=== PATIENT | male | born 1980 | race Caucasian/White ===

== ENCOUNTER → 2023-09-10 15:00 | Outpatient (CLI) | payer OTHER, SELFPAY ==
--- NOTE | ~2023-09-10 | MR_ITS ---
EXAMINATION: MR sacroiliac jpaige wo/w con DATE: 09/10/2023 15:47 INDICATION: Ankylosing spondylitis of multiple sites of the spine. Low back pain. Bilateral hip pain. TECHNIQUE: Magnetic resonance imaging (MRI) of the sacroiliac joints was performed without and with 1 5 mL MultiHance intravenous contrast. COMPARISON: None. FINDINGS: Bone alignment is normal. No fracture. There is mild lumbar spondylosis. There is ankylosis of the sa croiliac joints. There is edema and enhancement at the junction of the right erector spinae muscles a nd posterior right iliac crest. IMPRESSION: 1. Ankylosis of the sacroiliac joints. 2. Edema and enhancement at the junction of the right erector spinae muscles and posterior right adrien c crest, consistent with mild muscle strain. Reviewed, dictated and finalized at location A. IZATION REVIEW RN IMPRESSION: 1. Ankylosis of the sacroiliac joints. 2. Edema and enhancement at the junction of the right erector spinae muscles an d posterior right iliac crest, consistent with mild muscle strain.
== END ==
DX: M45.0 Ankylosing spondylitis of multiple sites in spine (principal); M12.80 Other specific arthropathies, not elsewhere classified, unspecified site; M45.6 Ankylosing spondylitis lumbar region; Z79.899 Other long term (current) drug therapy
CPT/HCPCS: 72197; A9577

== ENCOUNTER 2025-02-24 09:41 | Outpatient (CLI) | payer OTHER, SELFPAY ==
--- NOTE | ~2025-02-24 | XR_ITS ---
EXAM/ PROCEDURE: XR cervical spine 4-5V - 02/24/2025 9:46 CDT HISTORY: 44 years old Male with M54.2 - Cervicalgia M54.2 - Cervicalgia COMPARISON: None available TECHNIQUE: Four view(s) FINDINGS/ IMPRESSION: There are no fractures or dislocations.Multilevel degenerative changes are seen. Diffuse idiopathic s keletal hyperostosis seen. Visualized portion of lungs are clear. Reviewed, dictated and finalized at location A.
== END 2025-02-24 09:42 | disposition home or self-care (01) ==
PROVIDERS: PCP Internal Medicine; Visit Provider Nurse Practitioner
DX: M48.12 Ankylosing hyperostosis [Forestier], cervical region (principal); V89.2XXA Person injured in unspecified motor-vehicle accident, traffic, initial encounter
CPT/HCPCS: 72050

== ENCOUNTER 2025-08-16 01:57 | Day surgery (SDC) | payer OTHER, SELFPAY ==
[2025-07-25 14:17] VITALS: BMI 25.1
--- OUTSIDE RECORDS SUMMARY | 2025-08-16 02:00 | XMS_ITS | Encounter Summary ---
Author Organization [facility] Address [address] [place] [address] Phone Care Team Providers Care Ed Manager Name Role Phone Morris Jones MD Primary Care Provider [phone] Sandeep Lake Primary Care Provider Encounter Details Date Type Department Care Team (Late st Contact Info) Description 09/10/2023 Orders Only [facility] Scanning, Provider Social History Tobacco Use Types Packs/Day Years Used Date Smoking Tobacco: Every Day Cigarettes 0.3 23 Started: 08/25/2019 Smokeless Tobacco: Never AUDIT-C Answer Date Recorded Q1: How often do you have a drink containing alc ohol? 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 Gender Identity Not on file Sexual Orientation Not on file documented as of this encounter Plan of Treatment Not on file documented as of this encounter Procedures Procedure Name Priority Date/Time Associated Diagnosis Comments SCAN - RADIOLOGY/IMAGING 09/10/2023 documented in this encounter Results * SCAN - RADIOLOGY/IMAGING (09/10/2023) Anatomical Region Laterality Modality Other us Provider Scanning Final Result documented in this encounter Visit Diagnoses Not on filedocumented in this encounter Care Teams Ed Manager Relationship Specialty Start Date End Date Morris Jones MD [address] [place] [address] PCP - General Internal Medicine 05/21/22 06/21/24 Sandeep Lake PA [address] [place] [address] PCP - General Physician Wildlife Biology Technician 06/22/24 documented as of this encounter
--- OUTSIDE RECORDS SUMMARY | 2025-08-16 02:00 | XMS_ITS | Encounter Summary ---
Author Organization [facility] Address [address] [place] [address] Phone Care Team Providers Care Three Dimensional Art Instructor Name Role Phone David Lopez MD, Rod Mattson Primary Care Provider Morris Jones MD Primary Care Provider [phone]- [phone] Sandeep Lake Primary Care Provider Encounter Details Date Type Department Care Team (Late st Contact Info) Description 07/01/2018 Orders Only [facility]HE[facility]ATOLOGY Scanning, Provider Social History Tobacco Use Types Packs/Day Years Used Date Smoking Tobacco: Never Assessed Sex and Gender Information Value Date Recorded Sex Assigned at Not on file 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 Gender Identity Not on file Sexual Orientation Not on file documented as of this encounter Plan of Treatment Not on file documented as of this encounter Procedures Procedure Name Priority Date/Time Associated Diagnosis Comments SCAN - RADIOLOGY/IMAGING 07/01/2018 documented in this encounter Results * SCAN - RADIOLOGY/IMAGING (07/01/2018) Anatomical Region Laterality Modality Other us Provider Scanning Final Result documented in this encounter Visit Diagnoses Not on filedocumented in this encounter Care Teams Three Dimensional Art Instructor Relationship Specialty Start Date End Date Rod Hernandez Jr., MD [address] [place] [address] PCP - General Geriatric Medicine 07/09/18 05/20/22 Morris Jones MD [address] [place] [address] PCP - General Internal Medicine 05/21/22 06/21/24 Sandeep Lake PA [address] [place] [address] PCP - General Physician Dog Behaviorist 06/22/24 documented as of this encounter
--- OUTSIDE RECORDS SUMMARY | 2025-08-16 02:00 | XMS_ITS | Encounter Summary ---
Author Organization [facility] Address [address] [place] [address] Phone Care Team Providers Care Overedger Name Role Phone Sandeep Lake Primary Care Provider Encounter Details Date Type Department Care Team (Late st Contact Info) Description 02/24/2025 Orders Only [facility]HE[facility]ATOLOG[facility] Scanning, Provider Social History Tobacco Use Types Packs/Day Years Used Date Smoking Tobacco: Former Cigarettes 0.3 23.7 S tarted: 08/25/2019 Smokeless Tobacco: Never AUDIT-C Answer Date Recorded Q1: How often do you have a drink containing alcohol? 2-3 times a week 11/30/2024 Q2: How many drinks containi ng alcohol do you have on a typical day when you are drinking? 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 Gender Identity Not on file Sexual Orientation Not on file documented as of this encounter Plan of Treatment Not on file documented as of this encounter Procedures Procedure Name Priority Date/Time Associated Diagnosis Comments SCAN - RADIOLOGY/IMAGING 02/24/2025 documented in this encounter Results * SCAN - RADIOLOGY/IMAGING (02/24/2025) Anatomical Region Laterality Modality Other us Provider Scanning Final Result documented in this encounter Visit Diagnoses Not on filedocumented in this encounter Care Teams Overedger Relationship Specialty Start Date End Date Sandeep Lake PA [address] [facility] [address] [place] [address] PCP - General Physician Web Press Operator Helper Offset 06/22/24 documented as of this encounter
--- OUTSIDE RECORDS SUMMARY | 2025-08-16 02:00 | XMS_ITS | Clinical Summary ---
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 Gender Identity Not on file Sexual Orientation Not on file Plan of Treatment Health Maintenance Due Date Last Done Comments Colorectal Cancer Screening Colonoscopy (10 Years) 1980 Annual Physical 1983 Hepatitis C 1998 DTaP, Tdap and Td Vaccines ( 1 - Tdap) 1999 Hepatitis B Vaccines (1 of 3 - 19+ 3-dose series) 1999 HPV Vaccines (1 - 3-dose SCD M series) 2007 COVID-19 Vaccine (2024-2 6 season) 2025 Influenza Adult (#1) 2025 Hepatitis A Vaccines Aged Out No long er eligible based on patient's age to complete this topic Meningococcal B Vaccine Aged Out No l onger eligible based on patient's age to complete this topic Meningococcal Vaccine Aged Out No luis a alberto eligible based on patient's age to complete this topic Pneumococcal Vaccine: Pediat rics (0 to 5 Years) and At-Risk Patients (6 to 49 Years) Aged Out No longer eligible b ased on patient's age to complete this topic RSV Immunizations Under 20 Months Aged Out No longer eligible based on patient's age to complete this topic
--- OUTSIDE RECORDS SUMMARY | 2025-08-16 02:00 | XMS_ITS | Clinical Summary ---
Author Organization [facility] Address [address] [place] [address] Care Team Providers Care Mushroom Packer Name Role Phone Sandeep Lake Primary Care Provider Allergies No known active allergies Medications tofacitinib (Xeljanz XR) 11 mgIndications:An kylosing spondylitis of multiple sites in spine (HCC) Take 1 tablet (11 mg total) by mouth daily 90 tablet 3 5 Active sulfaSALAzine (AZULFIDINE) 500 mg tablet TAKE 1 TABLET BY MOUTH EVERY DAY 90 tablet 1 5 Active clobetasoL (TEMOVATE) 0.05 % ointmentIndicati ons:Eczema, unspecified type Apply thin layer BID to AA torso and extremities PRN rash. Do not apply to face or groin. 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 [facility] IM DOC from Last 3 Months Immunizations Immunization Administration Dates Next Due Influenza, Quadrivalent, Maryana l Culture-based MDCK, Preservative Free, Antibiotic Free, Intramuscular 08/11/2019 Surgical History Surgery Date Site/Laterality Comments KNEE ARTHROSCOPY Medical History Medical History Date Comments Gout Back pain Eczema Ankylosing spondylitis Family History Medical History Relation Name Comments Diabetes Father Gout Father Hypertension Father Hypertension Mother Melanoma Mother Psoriasis Mother psoriasis Mother Endometriosis Sister Graves' disease Sister Altagracia's thyroiditis Sister Ankylosing spondylitis Neg Hx Relation Name Status Comments Father Alive Mother Alive Sister Alive Social History Tobacco Use Types Packs/Day Years Used Date Smoking Tobacco: Former Cigarettes 0.3 23.7 S tarted: 08/25/2019 Smokeless Tobacco: Never Tobacco Cessation:Counseling Given: Not Answered AUDIT-C Answer Date Recorded Q1: How often [...] on file Legal Sex Male 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 WORKER Gender Identity Not on file Sexual Orientation Not on file Last Filed Vital Signs Vital Sign Reading Time Taken Comments Blood Pressure 120/79 05/03/2025 2:08 PM CDT Pulse 73 05/03/2025 2:08 PM CDT Temperature 36.4 C (97.5 F) 05/03/2025 2:08 PM CDT Respiratory Rate - - Oxygen Saturation 96% 05/03/2025 2:08 PM CDT Inhaled Oxygen Concentration - - Weight 83.8 kg (184 lb 11.2 oz) 05/03/2025 2:08 PM CDT Height 177.8 cm (5' 10) 05/03/2025 2:08 PM CDT Body Mass Index 26.5 05/03/2025 2:08 PM CDT Plan of Treatment Health Maintenance Due Date Last Done Comments Colon Cancer Screening-Colonoscopy 1980 Depression Screening 1980 DTaP/Tdap/Td Vaccine (1 - Tdap) 1991 Varicella Vaccines (1 of 2 - 13+ 2-dose series) 1993 Hepatitis B Screening 1998 Regular Well Visit/Exam 18-64 1998 HPV Vaccines (1 - 3-dose SCD M series) 2007 Influenza Vaccine (#1) 2025 08/11/2019 Hepatitis C Screening Completed 08/11/2019 Pneumococcal vaccine <65 Aged Out No longer eligible based on patient's age to complete this topic Procedures Procedure Name Priority Date/Time Associated Diagnosis Comments HEPATITIS C RNA, QUANTITATIVE, PCR Routine 08/11/2019 11:53 AM NIGHT WORKER Ankylosing spondylitis of lumbar region (HCC) from Last 3 Months or Most Recently Relevant to Health Maintenance Results * Hepatitis C (HCV) RNA PCR, quantitative (08/11/2019 11:53 AM NIGHT WORKER) HCV RNA result Not Detected GAVIN SEGUNDO Comment: Interpretive data: The quantifiable range of this assay is 15 IU/mL to 100,000,000 IU/mL (1.18 log IU/mL to 8.00 log IU/mL). Testing was performed by the [employer] AmpliPrep/SOHAM TaqMan HCV Test version 2.0 ([employer] Testing performed at [facility] Current Interpretive Data was last revised on 2015. Blood specimen (specimen) 08/11/2019 11:53 AM NIGHT WORKER 08/11/2019 2:03 PM NIGHT WORKER Yesenia Edwards MD LAB MICROBIOLOGY - GENERAL ORDERABLES Final Result [facility] Department [place] [address] from Last 3 Months or Most Recently Relevant to Health Maintenance Insurance [employer] [facility] PPO CIGNA [facility] PPO Care Teams Mushroom Packer Relationship Specialty Start Date End Date Sandeep Lake PA [address] [facility] [address] [place] [address] PCP - General Physician Key Holder 06/22/24
[2025-08-16 11:29] VITALS: BP 110/64; PULSE 62; RESP 18; TEMP 36.4; O2SAT 97
[2025-08-16] MEDS: LACTATED RINGERS 1,000 ML 150 ML IV CONT (11:36)
--- NOTE | 2025-08-16 12:30 | WPDANESEPPF ---
Anes - Initial Pre Proc Eval Procedure: Operation Date: 08/16/25 12:30 Proposed Procedures p Screening Colonoscopy - Marco Linder MD Date/Time: 08/16/25 12:30 Surgeon: Marco Linder MD Pre Op Diagnosis: Encounter for screening for malignant neoplasm of Patient Data Age: 45 Gender: M Height: 1.78 m Weight: 79 kg Last Vital Signs Temp 97.5 F L 08/16/25 11:29 Pulse 62 08/16/25 11:29 Resp 18 08/16/25 11:29 BP 110/64 08/16/25 11:29 Pulse Ox 97 08/16/25 11:29 O2 Del Method Room Air 08/16/25 11:29 Allergies Allergy/AdvReac Type Severity Reaction Status Date / Time No Known Allergies Allergy Verified 08/16/25 11:28 Home Medications ?Medication ?Instructions ?Recorded ?Confirmed ?Type sulfasalazine 500 mg 0.5 gm PO BID #1 tablet 09/03/19 07/25/25 Rx tablet,delayed release diclofenac sodium 75 mg 75 mg PO DAILY 09/11/21 07/25/25 History tablet,delayed release tofacitinib 11 mg tablet,extended 11 mg PO DAILY 03/06/22 07/25/25 History release 24 hr (Xeljanz XR) methocarbamol 750 mg tablet 750 mg PO TID #30 tabs 02/24/25 07/25/25 Rx rosuvastatin 10 mg tablet (Crestor) 10 mg PO DAILY #30 tabs 06/07/25 07/25/25 Rx Patient hx anesthesia problems: none Family hx anesthesia problems: none Results Review: All pre-operative results and documents have been reviewed as part of the pre-operative evaluation. [facility] Past Medical History Medical History BMI 26.0-26.9,adult Other spondylosis with radiculopathy, cervical region Other fatigue Mixed hyperlipidemia Malaise and fatigue Lumbar muscle pain Impaired glucose tolerance (oral) Idiopathic gout, unspecified site Hypogonadism in male Hyperuricemia Encounter for well adult exam with abnormal findings Chronic bilateral low back pain without sciatica Back muscle spasm Gout Ankylosing spondylitis of unspecified sites in spine sees Rheumatology at [facility]. Surgical History Surgical History H/O knee surgery Family History Family History Father Family history of gout Diabetes mellitus Mother No problems noted. Sibling No problems noted. Social History Social History Smoking packs per day: 0.5 Smoking cigarettes per day: 10.0 Years smoked: 21 Smoking pack-years: 10.50 Smoking status: Former smoker Tobacco type: cigarettes Second hand tobacco smoke exposure: Yes Alcohol intake: current Drinks per week: 10 Substance use: never Substance use type: does not use Lack of Transportation: No Lack of Food: Never True Current Housing: I Have Housing Concerned About Future Housing: No Difficulty Paying Gas/Electric Bills: No Difficulty Paying for Meds: No Currently Unemployed: No Education: Bachelor's Degree Difficulty w/ Childcare or Family Care: No Living arrangements: with family Occupation/Education: occupation Additional occupation/education comments: banker Gender identity (if verbalized by the patient): Male Spiritual care concerns: No Anes - Eval Final PreProcedure Day of Procedure 08/16/25 12:30 Patient weight: normal Lungs: normal air movement Airway: Mallampati scale class II Neurological: alert and oriented Last oral intake: >/= 8 hours ASA classification: II Emergent: no Anesthetic plan: proceed Anesthesia type and monitoring: general and standard monitoring Results Review: All pre-operative results and documents have been reviewed as part of the pre-operative evaluation. Hyperlipidemia, ex smoker, quit 2021, pt very active w soccer/gym/running, no cp or sob. Informed Consent: The patient's anesthetic plan and its attendant risks and benefits were discussed with the patient/family/POA. Questions were solicited and answers provided to the satisfaction of the patient/family/POA.
[2025-08-16 13:08] VITALS: BP 113/64; PULSE 68; RESP 18; O2SAT 98
[2025-08-16 13:18] VITALS: BP 118/77; PULSE 66; RESP 18; O2SAT 99
[2025-08-16 13:28] VITALS: BP 124/79; PULSE 63; RESP 18; O2SAT 98
--- NOTE | 2025-08-17 21:57 | P.HP_ITS ---
H&P: HPI History of Present Illness Date/Time: 08/17/25 21:57 Chief Complaint: Screening colonoscopy Narrative: This is the patient's first colonoscopy. There are no GI symptoms and there is no family history of colorectal cancer. Review of Systems Review of Systems: All systems reviewed & are unremarkable except as noted in HPI and below [facility] Past Medical History Medical History BMI 26.0-26.9,adult Other spondylosis with radiculopathy, cervical region Other fatigue Mixed hyperlipidemia Malaise and fatigue Lumbar muscle pain Impaired glucose tolerance (oral) Idiopathic gout, unspecified site Hypogonadism in male Hyperuricemia Encounter for well adult exam with abnormal findings Chronic bilateral low back pain without sciatica Back muscle spasm Gout Ankylosing spondylitis of unspecified sites in spine sees Rheumatology at [facility]. Surgical History Surgical History H/O knee surgery Family History Family History Father Family history of gout Diabetes mellitus Mother No problems noted. Sibling No problems noted. Social History Social History Smoking packs per day: 0.5 Smoking cigarettes per day: 10.0 Years smoked: 21 Smoking pack-years: 10.50 Smoking status: Former smoker Tobacco type: cigarettes Second hand tobacco smoke exposure: Yes Alcohol intake: current Drinks per week: 10 Substance use: never Substance use type: does not use Lack of Transportation: No Lack of Food: Never True Current Housing: I Have Housing Concerned About Future Housing: No Difficulty Paying Gas/Electric Bills: No Difficulty Paying for Meds: No Currently Unemployed: No Education: Bachelor's Degree Difficulty w/ Childcare or Family Care: No Living arrangements: with family Occupation/Education: occupation Additional occupation/education comments: banker Gender identity (if verbalized by the patient): Male Spiritual care concerns: No Meds Home Medications and Allergies Home Medications ?Medication ?Instructions ?Recorded ?Confirmed ?Type sulfasalazine 500 mg 0.5 gm PO BID #1 tablet 11/1807/25/25 Rx tablet,delayed release diclofenac sodium 75 mg 75 mg PO DAILY 09/11/2107/03 History tablet,delayed release tofacitinib 11 mg tablet,extended 11 mg PO DAILY 03/0607/25/25 History release 24 hr (Xeljanz XR) methocarbamol 750 mg tablet 750 mg PO TID #30 tabs 07/25/25 Rx rosuvastatin 10 mg tablet (Crestor) 10 mg PO DAILY #30 tabs 06/07/25 07/25/25 Rx Allergies Allergy/AdvReac Type Severity Reaction Status Date / Time No Known Allergies Allergy Verified 08/16/25 11:28 Exam Const: General: cooperative and healthy appearing Resp: Effort & Inspection: normal respiratory effort and able to speak in complete sentences Auscultation: clear to auscultation bilaterally Cardio: Rate: regular rate Rhythm: regular rhythm GI: Inspection: normal to inspection GI Palp: No No hepatosplenomegaly present Auscultation: normal bowel sounds Rectal Exam: deferred Skin: General skin exam: normal color Psych: Appearance: grossly normal Mental Status: mental status grossly normal Assessment and Plan Assessment and plan (1) Screening for colon cancer: Code(s): Z12.11 - Encounter for screening for malignant neoplasm of colon Status: Acute Assessment and Plan: The patient is deemed a good candidate for the procedure. Consent signed. Will proceed. Her Prior Studies I have reviewed the following patient records and this information was taken into consideration when formulating the assessment and plan.: previous labs, previous ER visits, previous hospitalizations and previous clinic visits
== END 2025-08-16 13:44 | disposition home or self-care (01) ==
PROVIDERS: PCP Nurse Practitioner; Referring Provider Nurse Practitioner; Visit Provider Internal Medicine Gastroenterology
PROC: 0DJD8ZZ Inspection of Lower Intestinal Tract, Via Natural or Artificial Opening Endoscopic (ICD-10-PCS; CPT 45378; principal; 2025-08-16 12:30)
DX: Z12.11 Encounter for screening for malignant neoplasm of colon (principal); K64.8 Other hemorrhoids; Z87.891 Personal history of nicotine dependence
CPT/HCPCS: 45378; J2003; J2704; J7120